=== PATIENT | female | born 1975 | race Caucasian/White ===

== ENCOUNTER → 2017-07-18 | Outpatient (CLI) | payer OTHER ==
[~2017-07-18] MED LIST: BNC4025 PO; NOVOLOG INSULIN PUMP; SYN200 PO
[2017-07-18 13:39] LABS: HEMOGLOBIN A1C 10.7 % (4.5-5.6)
[2017-07-18 13:50] LABS: ALBUMIN 3.4 gm/dl (3.4-5.0); ALT/SGPT 21 U/L (12-78); AST/SGOT 12 U/L (15-37); BLOOD UREA NITROGEN 15 mg/dl (7-18); CALCIUM 9.1 mg/dl (8.5-10.1); CARBON DIOXIDE 25 mmol/L (21-32); CREATININE 0.61 mg/dl (0.60-1.20); GLUCOSE 103 mg/dl (70-99); POTASSIUM 4.1 mmol/L (3.5-5.1); SODIUM 137 mmol/L (136-145)
[2017-07-18 13:58] LABS: ALKALINE PHOSPHATASE 77 U/L (45-117); CHOLESTEROL 183 mg/dl (0-200); LDL CHOLESTEROL CALCULATED 111 mg/dl; TOTAL PROTEIN 7.3 gm/dl (6.4-8.2)
[2017-07-18 14:00] LABS: CREATININE RANDOM URINE 76.4 mg/dl
== END | disposition home or self-care (01) ==
LOC: C.LABBFT 08:13
PROVIDERS: ATTEND Nurse Practitioner Acute Care
DX: E10.65 Type 1 diabetes mellitus with hyperglycemia (principal); I10 Essential (primary) hypertension; E06.3 Autoimmune thyroiditis

== ENCOUNTER → 2017-12-23 | Outpatient (CLI) | payer OTHER ==
[~2017-12-23] MED LIST changes: +B-CO-25 PO; -BNC4025 PO; +HYDR-5688 PO; +HYZ/50125 PO; +IBUP-103 PO; +IRON PO; +LEVO175T3 PO; +PRAV20TA PO; -SYN200 PO
[2017-12-23 10:57] LABS: BLOOD UREA NITROGEN 11 mg/dl (7-18); CALCIUM 9.1 mg/dl (8.5-10.1); CARBON DIOXIDE 26 mmol/L (21-32); GLUCOSE 211 mg/dl (70-99); POTASSIUM 3.7 mmol/L (3.5-5.1); SODIUM 137 mmol/L (136-145)
[2017-12-23 11:07] LABS: HEMATOCRIT 33.2 % (37-47); HEMOGLOBIN 9.7 g/dL (12.0-16.0); MEAN CELL VOLUME 70.5 fL (80-100); MEAN CORPUSCULAR HEMOGLOBIN 20.6 pg (25-34); MEAN CORPUSCULAR HGB CONC 29.2 g/dl (32-36); MEAN PLATELET VOLUME 9.3 fL (7.4-10.4); PLATELET COUNT 288 K/uL (130-400); RED CELL DISTRIBUTION WIDTH CV 17.5 % (11.5-14.5); RED CELL DISTRIBUTION WIDTH SD 44.7 fL (36.4-46.3); WHITE BLOOD COUNT 5.97 K/uL (4.8-10.8)
[2017-12-23 11:12] LABS: BASO % 0.5 %; BASO ABS # 0.03 K/uL (0-0.2); EOS ABS # 0.18 K/uL (0-0.5); IG# 0.01 K/uL (0.00-0.02); LYMPH % 26.1 %; LYMPH ABS # 1.56 K/uL (1.2-3.4); MONO % 6.4 %; MONO ABS # 0.38 K/uL (0.11-0.59); NEUT % 63.8 %; NEUT ABS # 3.81 K/uL (1.4-6.5)
[2017-12-24 08:44] LABS: HEMOGLOBIN A1C 10.2 % (4.5-5.6)
== END | disposition home or self-care (01) ==
LOC: C.LAB 09:37
PROVIDERS: ATTEND Surgery
DX: Z01.818 Encounter for other preprocedural examination (principal)

== ENCOUNTER → 2017-12-28 | Outpatient (CLI) | payer OTHER ==
--- NOTE | 2017-12-28 17:12 | ECHOCARDIOGRAM REPORT ---
*NOTICE TO RECEIVING CONSTITUTION PARTY AGENCY This information is strictly Confidential and protected under [place] law. [place] law prohibits you from making any further disclosure of this information unless further disclosure is expressly permitted by the written consent of the person to whom it pertains or is authorized by law. A general authorization for the release of medical or other information is not sufficient for this purpose. Hospital accepts no responsibility if the information is made available to any other person, INCLUDING THE PATIENT. Interpretation Summary * Name: JASON HAWKINS Study Date: 12/28/2017 02:48 PM BP: 166/92 mmHg * Patient Location: [facility] HR: 72 * : 1975 (M/d/yyyy) Gender: Female Height: 67 in * Age: 42 yrs Ethnicity: [place] Weight: 215 lb * Referring Physician: Lidia Gamboa * Performed By: Leta Silva RDCS * * Reason For Study: Pre Operative, Systolic Murmur * BSA: 2.1 m2 * -- Conclusions -- * 1. Normal LV size, borderline concentric LVH. * 2. LVEF 60-65%. No regional wall motion abnormalities. * 3. Normal RV size and function. * 4. Aortic valve sclerosis with nodular thickening of left coronary cusp. No significant aortic stenosis. * 5. Mild mitral regurgitation. * 6. No prior studies for comparison. Procedure Details * A complete two-dimensional transthoracic echocardiogram was performed (2D, M-mode, Doppler and color flow Doppler). Left Ventricle * The left ventricle is grossly normal size. * There is borderline concentric left ventricular hypertrophy. * Ejection Fraction = 60-65%. * No regional wall motion abnormalities noted. Right Ventricle * The right ventricle is grossly normal size. * The right ventricular systolic function is normal as assessed by tricuspid annular plane systolic excursion (TAPSE) (normal >1.5 cm). Atria * Borderline left atrial enlargement. * Right atrial size is normal. * No ASD detected; PFO is not assessed. Mitral Valve * The mitral valve is grossly normal. * There is no mitral valve stenosis. * There is mild mitral regurgitation. Tricuspid Valve * The tricuspid valve is not well visualized, but is grossly normal. * Significant tricuspid regurgitation is absent. Aortic Valve * The aortic valve is trileaflet. * There is discrete nodular thickening of the left coronary cusp. * Aortic valve sclerosis moderate, without significant aortic valvular stenosis. * No hemodynamically significant valvular aortic stenosis. * There is no significant aortic regurgitation. Pulmonic Valve * The pulmonary valve is inadequately visualized, but the Doppler data is adequate for interpretation. * Pulmonic stenosis is absent. * There is no significant pulmonary regurgitation. Great Vessels * The aortic root and proximal ascending aorta are normal sized. Pericardium/Pleural * There is no pericardial effusion. Great Vessels * Normal inferior vena cava size and collapsability with sniff indicates a normal right atrial pressure of 3 mmHg MMode 2D Measurements and Calculations IVSd 1.3 cm IVSs 1.3 cm LVIDd 3.9 cm LVIDs 2.7 cm LVPWd 1.1 cm LVPWs 1.5 cm IVS/LVPW 1.2 FS 30.3 % EDV(Teich) 66.0 ml ESV(Teich) 27.5 ml EF(Teich) 58.4 % EDV(cubed) 59.4 ml ESV(cubed) 20.1 ml EF(cubed) 66.2 % % IVS thick 1.5 % % LVPW thick 40.2 % LV mass(C)d 150.2 grams LV mass(C)dI 72.0 grams/m\S\2 LV mass(C)s 119.8 grams LV mass(C)sI 57.4 grams/m\S\2 SV(Teich) 38.5 ml SI(Teich) 18.5 ml/m\S\2 SV(cubed) 39.3 ml SI(cubed) 18.9 ml/m\S\2 Ao root diam 3.1 cm Ao root area 7.4 cm\S\2 ACS 1.7 cm LA dimension 3.9 cm LA/Ao 1.3 LVAd ap4 30.8 cm\S\2 LVLd ap4 9.1 cm EDV(MOD-sp4) 87.6 ml EDV(sp4-el) 88.2 ml LVAs ap4 18.0 cm\S\2 LVLs ap4 7.4 cm ESV(MOD-sp4) 39.4 ml ESV(sp4-el) 37.2 ml EF(MOD-sp4) 55.1 % EF(sp4-el) 57.9 % LVAd ap2 27.8 cm\S\2 LVLd ap2 8.5 cm EDV(MOD-sp2) 79.2 ml EDV(sp2-el) 77.1 ml LVAs ap2 16.7 cm\S\2 LVLs ap2 7.7 cm ESV(MOD-sp2) 32.0 ml ESV(sp2-el) 30.8 ml EF(MOD-sp2) 59.6 % EF(sp2-el) 60.1 % LVLd %diff -6.99 % EDV(MOD-bp) 86.6 ml LVLs %diff 2.9 % ESV(MOD-bp) 36.1 ml EF(MOD-bp) 58.3 % SV(MOD-sp4) 48.2 ml SI(MOD-sp4) 23.1 ml/m\S\2 SV(MOD-sp2) 47.2 ml SI(MOD-sp2) 22.6 ml/m\S\2 SV(MOD-bp) 50.6 ml SI(MOD-bp) 24.2 ml/m\S\2 SV(sp4-el) 51.1 ml SI(sp4-el) 24.5 ml/m\S\2 SV(sp2-el) 46.3 ml SI(sp2-el) 22.2 ml/m\S\2 Doppler Measurements and Calculations MV E max derrick 95.9 cm/sec MV A max derrick 75.9 cm/sec MV E/A 1.3 MV dec time 0.26 sec Ao V2 max 178.3 cm/sec Ao max PG 12.7 mmHg Ao max PG (full) 8.0 mmHg LV V1 max PG 4.7 mmHg LV V1 max 108.7 cm/sec PA V2 max 96.4 cm/sec PA max PG 3.7 mmHg
== END | disposition home or self-care (01) ==
LOC: C.CPL 14:22
PROVIDERS: ATTEND Physician Assistant Medical
DX: R01.1 Cardiac murmur, unspecified (principal)

== ENCOUNTER 2017-12-29 11:03 | Observation (INO) | payer OTHER ==
[2017-12-16 15:57] VITALS: BMI 34.0
[2017-12-23 09:48] VITALS: BMI 33.0
--- NOTE | 2017-12-23 10:05 | PAT Medication Instructions ---
Service Date Dec 23, 2017. Current Home Medication List B-Complex W/ Folic Acid (Super B Complex Maxi), 1 TAB PO QAM Hctz/Losartan (Hyzaar 12.5MG/50MG), 1 TAB PO QAM Ibuprofen Tab (Advil), 400 MG PO PRN Levothyroxine Sodium (Levothyroxine Sodium), 1 TAB PO QAM Pravastatin (Pravachol ), 40 MG PO HS [Iron], 1 TAB PO QAM [Novolog Insulin Pump] Medication Instructions For Your Scheduled Surgery - Check with surgeon for instructions: Ibuprofen Tab (Advil), 400 MG PO PRN - Hold the following medications the morning of surgery: [Iron], 1 TAB PO QAM Hctz/Losartan (Hyzaar 12.5MG/50MG), 1 TAB PO QAM B-Complex W/ Folic Acid (Super B Complex Maxi), 1 TAB PO QAM - Take the following medications the morning of surgery with a sip of water: Levothyroxine Sodium (Levothyroxine Sodium), 1 TAB PO QAM - Take the following medications as scheduled the night before surgery: Pravastatin (Pravachol ), 40 MG PO HS - For Insulin Dependent Diabetic patients: Test blood sugar A.M. of surgery. - [Novolog Insulin Pump]- do not bolus morning of surgery. continue basal setting. If you have any questions please call us at [phone] or [phone] or [phone]
[2017-12-29] VITALS (7 sets, daily range): BP systolic 111–187; BP diastolic 70–96; PULSE 77–92; TEMP 36.8–37.2; O2SAT 93–98; BMI 33.0
[~2017-12-29] VITALS: Ht 170.2 cm; Wt 96.9 kg
[~2017-12-29 11:03] MED LIST changes: +ATROPINE SULFATE 0.1 MG/ML 5ML SYR IV PRN; +CLINDAMYCIN IV 900 MG in DEXTROSE 5% 50ML IV SCH; +EpHEDrine SULFATE INJ 50 MG/ML AMP IV PRN; +FENTANYL CITRATE INJ 50 MCG/1 ML 2 ML VIAL IV PRN; -HYDR-5688 PO; +HYDROmorphone INJ 1 MG/ML SYR IV PRN; +LACTATED RINGER'S 1000ML 1,000 ML IV SCH; +ONDANSETRON INJ 2 MG/ML 2 ML VIAL IV PRN
[2017-12-29] MEDS ORDERED: FENTANYL CITRATE INJ 50 MCG/1 ML 2 ML VIAL ONE ×2 (12:05→15:30)
[2017-12-29] MEDS ORDERED: MIDAZOLAM HCL 1 MG/ML 2ML VIAL ONE (12:05)
--- NOTE | 2017-12-29 12:40 | History & Physical Bridge Note ---
H&P Re-Evaluation Bridge Note: I have examined the patient, reviewed the History & Physical and in the interval since the performance of the History & Physical I have noted the following changes of clinical significance: No changes noted
[2017-12-29] MEDS ORDERED: BUPIVACAINE/EPINEPHRINE 0.5% MPF 1:200,000 30 ML VIAL ONE (12:57)
[2017-12-29] MEDS ORDERED: HYDR-5688 PO (13:03)
--- NOTE | 2017-12-29 13:06 | Discharge Instructions ---
Discharge Instructions Date of Service Dec 29, 2017. Admission Reason for Admission: Incisional Hernia, Diabetes Discharge Discharge Diagnosis / Problem: incisional hernia Discharge Goals Goal(s): Decrease discomfort, Therapeutic intervention Activity Recommendations Activity Limitations: as noted below Lifting Limitations: no more than 10 pounds Exercise/Sports Limitations: until after follow-up appointment May Resume Sexual Activity: after follow-up appointment . Instructions / Follow-Up Instructions / Follow-Up call [phone] if any questions or concerns. Current Hospital Diet Patient's current hospital diet: Discharge Diet Recommended Diet: Regular Diet Pending Studies Studies pending at discharge: no Laboratory Results Hemoglobin A1c Test 12/23/17 10:10 Range/Units Estimated Average Glucose 246 mg/dl Hemoglobin A1c 10.2 H 4.5-5.6 % Medical Emergencies . Who to Call and When: Medical Emergencies: If at any time you feel your situation is an emergency, please call 911 immediately. . Non-Emergent Contact Non-Emergency issues call your: Primary Care Provider, Surgeon Call Non-Emergent contact if: temperature is above 101, wound has increased drainage, wound has increased redness, wound has increased pain . "Provider Documentation" section prepared by Fam Sharp. .
[2017-12-29] MEDS ORDERED: LARYING-O-JET KIT (LTA) ONE (13:37)
[2017-12-29] MEDS ORDERED: ONDANSETRON INJ 2 MG/ML 2 ML VIAL ONE (13:37)
[2017-12-29] MEDS ORDERED: LIDOCAINE HCL 2% 2 ML VIAL (20MG/ML) ONE (13:37)
[2017-12-29] MEDS ORDERED: PROPOFOL IV EMULSION 10 MG/ML 20 ML VIAL ONE (13:37)
[2017-12-29] MEDS ORDERED: GLYCOPYRROLATE INJ 0.2 MG/ML VIAL ONE (13:37)
[2017-12-29] MEDS ORDERED: NEOSTIGMINE METHYLSULFATE 5 MG/5 ML SYR ONE (13:37)
[2017-12-29] MEDS ORDERED: ROCURONIUM BROMIDE 10 MG/ML 5 ML VIAL ONE (13:37)
[2017-12-29] MEDS ORDERED: PHENYLEPHRINE 100MCG/ML 5ML SYR ONE (13:42)
[2017-12-29] MEDS ORDERED: HYDROmorphone INJ 2 MG/ML SYR/VIAL ONE (13:57)
[2017-12-29] MEDS ORDERED: ARISTA ABSORBABLE HEMOSTAT 3GM TOP ONE (14:50)
[2017-12-29] MEDS ORDERED: PHARMACY GLYCEMIC MGMT CONSULT STA (15:11)
--- NOTE | 2017-12-29 15:14 | [facility] Operative Report ---
Operative Report Operative Date Dec 29, 2017. Pre-Operative Diagnosis Incisional Hernia; painful/widened scar Post-Operative Diagnosis Multiple Incisional Hernias; adhesions; painful scar Procedure(s) Performed Component Separation, Open Repair of Multiple Incisional Hernias with Biologic Mesh, Enterolysis and Scar Revision Surgeon Dr. Sharp Market Development Analyst Surgeon(s) Bryan Asencio PA-C Estimated Blood Loss 15 ml Specimens none per surgeon Anesthesia Type General Complication(s) none Description of Procedure After informed consent was obtained the patient was taken to the operating room and placed in supine position. After successful intubation the abdomen was sterilely prepped and draped in usual fashion. She had a widened painful scar. We used a 15 blade scalpel to make a wide ellipse around her entire previous upper midline incision. We used electrocautery to remove the skin and subcutaneous scar. Once we had the skin off there was a large obvious mid abdominal hernia. We took down the hernia sac using blunt dissection with small amounts of electrocautery and sharp scissor lysis. Once we open the hernia sac and could palpate the undersurface of the fascia within the abdomen and I noted 5 hernias total. One hernia inferior to the large hernia and 3 smaller hernias superior. They basically formed a Georgian cheese type of effect through the entire previous incision. I therefore decided to connect all of these by transecting the fascial bridges which were thinned out anyway. After doing this I had 1 large defect. There were adhesions to the undersurface of the fascia primarily involving colon. This was taken down using sharp scissor lysis. Once I had these down I then skeletonized the fascia laterally on both sides until I was lateral to the rectus muscle. I divided the fascia right at the border of the rectus and obliques with electrocautery. I performed a component separation/relaxing incision vertically on both sides the entire length of the incision. This allowed me to primarily close the large defect with minimal tension. Once the relaxing incisions were made I then used #1 Ethibond in erupted [id number] fashion to summer primarily close the entire defect. Once this was completed we thoroughly irrigated the wound. Any small bleeding points were controlled using electrocautery. I then used a 20 cm x 20 cm piece of biologic ovitex mesh. I did cut it slightly to narrow it to about 13 or 14 cm from side to side. We then placed it as an onlay centering it around the midline closure. I secured it to underlying fascia using 0 Ethibond in interrupted fashion around the entire periphery as well as through the middle of it. It laid nice and flat and tension-free. An additional irrigation was performed. A 10 flat Marshall-Lamb drain was placed through a separate stab incision in the soft tissue space. This was secured to the skin using 2-0 nylon. We used Shakeel powder on the raw surfaces to help prevent seroma and hematoma formation. I then closed the wound in multiple layers 0 Vicryl for deep layers 2-0 Vicryl for mid layers and 4-0 Monocryl for skin. Benzoin, Steri-Strips, gauze and tape as well as an abdominal binder were used for dressing. The patient was awaken extubated and transferred recovery in stable condition. My physician graduate research assistant was present for the entire case. He helped prep the patient. He helped with retraction and exposure during my entire dissection. He helped with wound closure and dressing placement at the end of the case. I attest to the content of the Intraoperative Record and any orders documented therein. Any exceptions are noted below.
[2017-12-29] MEDS ORDERED: ONDANSETRON INJ 2 MG/ML 2 ML VIAL IV PRN (15:15)
[2017-12-29] MEDS ORDERED: MoRPHine SULFATE 2 MG/ML CARP IV PRN (15:15)
[2017-12-29] MEDS ORDERED: OXYCODONE HCL IR 5 MG TAB (IMMEDIATE RELEASE) PO PRN (15:30)
[2017-12-29] MEDS ORDERED: PHARMACY GLYCEMIC MGMT CONSULT PRN (15:30)
[2017-12-29] MEDS ORDERED: HYDROmorphone INJ 1 MG/ML SYR ONE (15:30)
[2017-12-29] MEDS ORDERED: IV FLUIDS COMPLETED PRN (15:45)
--- NOTE | 2017-12-29 16:42 | Anesthesiology Progress Note ---
Anesthesia Post Op Note Date & Time Dec 29, 2017 at 16:42 Vital Signs Pain Intensity: 3 Vital Signs Past 12 Hours Date Time Temp Pulse Resp B/P (MAP) Pulse Ox O2 Delivery O2 Flow Rate FiO2 12/29/17 16:40 89 12 145/67 98 Nasal Cannula 2 12/29/17 16:30 85 18 142/74 98 Nasal Cannula 2 12/29/17 16:20 85 14 140/68 98 Nasal Cannula 2 12/29/17 16:10 36.7 92 14 136/68 98 Nasal Cannula 2 12/29/17 16:00 85 12 165/75 98 Nasal Cannula 2 12/29/17 15:50 85 12 169/79 98 Nasal Cannula 2 12/29/17 15:40 83 12 168/83 100 Nasal Cannula 2 12/29/17 15:30 85 12 178/90 100 Oxymask 10 12/29/17 15:21 36.7 88 14 177/92 100 Oxymask 10 12/29/17 11:57 37.2 92 18 187/96 (126) 97 Room Air Notes Mental Status: alert / awake / arousable, participated in evaluation Pt Amnestic to Procedure: Yes Nausea / Vomiting: adequately controlled Pain: adequately controlled Airway Patency, RR, SpO2: stable & adequate BP & HR: stable & adequate Hydration State: stable & adequate Anesthetic Complications: no major complications apparent
[2017-12-29] MEDS ORDERED: GLUCOSE 40% GEL 15 GM TUBE PO PRN (17:45)
[2017-12-29] MEDS ORDERED: CARBOHYDRATES FOR HYPOGLYCEMIA PO PRN (17:45)
[2017-12-29] MEDS ORDERED: GLUCOSE 10 TABS/TUBE PO PRN (17:45)
[2017-12-29] MEDS ORDERED: INSULIN ASPART 100 UNITS/ML VIAL SC PRN (17:45)
[2017-12-29] MEDS ORDERED: GLUCAGON FOR INJ 1 MG VIAL IM PRN (17:45)
[2017-12-29] MEDS ORDERED: DEXTROSE 50% 50 ML SYR IV PRN (17:45)
[2017-12-29] MEDS: ACETAMINOPHEN IV 1,000 MG in EMPTY BAG 0 ML IV SCH (18:13)
[2017-12-29] MEDS: KETOROLAC TROMETHAMINE 15 MG/ML VIAL IV. SCH (18:14)
[2017-12-29] MEDS: METOCLOPRAMIDE HCL INJ 5 MG/ML 2 ML VIAL IV. SCH (18:14)
[2017-12-29] MEDS: NovoLOG INSULIN PUMP SCH ×2 (18:24→21:07)
[2017-12-29] MEDS: CLINDAMYCIN IV 900 MG in DEXTROSE 5% 100ML 100 ML IV SCH (19:47)
[2017-12-29] MEDS ORDERED: PRAVASTATIN SOD 40 MG TAB PO SCH (21:00)
[2017-12-29] MEDS: DOCUSATE SODIUM 100 MG CAP PO SCH (21:01)
--- NOTE | 2017-12-29 22:19 | Pharmacy Progress Note ---
Glycemic Control Intl Consult Date of Service Dec 29, 2017. Scope Glycemic Pharmacist consulted by Bryan Asencio PA-C on 12/29/2017 for glycemic control and to write orders per [facility] inpatient glycemic control protocol Objective Weight (Kilograms): 96.900 Accuchecks BSG (last 24hrs): Test 12/29/17 11:51 12/29/17 13:51 12/29/17 15:25 12/29/17 17:09 Bedside Glucose 215 mg/dl (70-90) 170 mg/dl (70-90) 150 mg/dl (70-90) 278 mg/dl (70-90) Test 12/29/17 21:06 Bedside Glucose 233 mg/dl (70-90) Recent Pertinent Medications Outpatient Anti-diabetic Regimen: * Novolog Pump * basal rates : * 0556-4676: 1.8 units/hr * 2801-9469: 2 units/hr * 5647-6531: 1.4 units/hr * 4798-5000: 1.5 units/hr * CR: 1 unit per 15 grams of carbohydrates * A1c = 10.2 % 12/23/17 Risk Factors for Insulin Resistance: * Recent Surgery: POD 0 for multiple hernia repair * Diet: clear liquid diet Assessment & Plan ASSESSMENT: * Pt is to manage BSGs with insulin pump per outpatient settings. * RN will have patient read and sign agreement [id number] Insulin Pump Therapy Patient Agreement. * RN will provide and explain form [id number] Flowsheet for Patient * Patient will document their insulin dose given on NS-824 which is kept at the bedside, available to caregivers upon request, and which becomes part of the permanent medical record. If at any time the patients condition evidences that he/she is not able to manage the insulin pump (i.e. frequent hypo/hyperglycemia) Pharmacy will assume glycemic control by discontinuing the pump & managing with SQ basal bolus insulin regimen for the interim. * Please note that the plan above was derived based on current level of insulin resistance and hospital stress. These recommendations are appropriate for inpatient admission only. Plan of care upon discharge will need to be reassessed to avoid potential outpatient hypo/hyperglycemia. Thank you.
[2017-12-29] MEDS: SODIUM CHLORIDE 0.9% 1000ML 1,000 ML IV SCH (23:24)
[2017-12-30] MEDS: CLINDAMYCIN IV 900 MG in DEXTROSE 5% 100ML 100 ML IV SCH (00:52)
[2017-12-30 00:53] VITALS: BP 150/75; PULSE 78; TEMP 36.9; O2SAT 94
[2017-12-30] MEDS: ACETAMINOPHEN IV 1,000 MG in EMPTY BAG 0 ML IV SCH ×2 (02:18→10:03)
[2017-12-30] MEDS: METOCLOPRAMIDE HCL INJ 5 MG/ML 2 ML VIAL IV. SCH ×2 (02:19→10:04)
[2017-12-30] MEDS: KETOROLAC TROMETHAMINE 15 MG/ML VIAL IV. SCH ×2 (02:19→10:04)
[2017-12-30 02:50] VITALS: BP 123/76; PULSE 83; TEMP 36.9; O2SAT 96
[2017-12-30 04:55] VITALS: BP 150/79; PULSE 89; TEMP 36.9; O2SAT 98
[2017-12-30] MEDS ORDERED: NURSING VERBAL MED ORDER ONE (05:45)
[2017-12-30] MEDS ORDERED: LEVOTHYROXINE 175 MCG TAB PO SCH (06:00)
--- NOTE | 2017-12-30 07:41 | Surgery Progress Note ---
Surgery Progress Note Date of Service Dec 30, 2017. Subjective Post OP Day: 1 + feeling well, + pain controlled (Ofirmev) Objective Vital Signs: Date Time Temp Pulse Resp B/P (MAP) Pulse Ox O2 Delivery O2 Flow Rate FiO2 12/30/17 04:55 36.9 89 17 150/79 (102) 98 Room Air 12/30/17 02:50 36.9 83 17 123/76 (92) 96 Room Air 12/30/17 00:53 36.9 78 18 150/75 (100) 94 Room Air 12/30/17 00:30 Room Air 12/29/17 22:50 36.8 78 18 131/78 (95) 98 Room Air 12/29/17 20:50 36.8 77 18 134/78 (96) 96 Room Air 12/29/17 19:54 36.9 80 18 111/72 (85) 93 Room Air 12/29/17 18:50 36.9 89 18 117/70 (86) 98 Nasal Cannula 2.0 12/29/17 17:50 36.8 90 18 147/76 (99) 98 Nasal Cannula 2.0 12/29/17 16:50 Nasal Cannula 2.0 12/29/17 16:50 Nasal Cannula 2.0 12/29/17 16:50 37.2 88 18 164/73 (103) 97 Nasal Cannula 2.0 12/29/17 16:40 89 12 145/67 98 Nasal Cannula 2 12/29/17 16:30 85 18 142/74 98 Nasal Cannula 2 12/29/17 16:20 85 14 140/68 98 Nasal Cannula 2 12/29/17 16:10 36.7 92 14 136/68 98 Nasal Cannula 2 12/29/17 16:00 85 12 165/75 98 Nasal Cannula 2 12/29/17 15:50 85 12 169/79 98 Nasal Cannula 2 12/29/17 15:40 83 12 168/83 100 Nasal Cannula 2 12/29/17 15:30 85 12 178/90 100 Oxymask 10 12/29/17 15:21 36.7 88 14 177/92 100 Oxymask 10 12/29/17 11:57 37.2 92 18 187/96 (126) 97 Room Air Physical Exam: MARY JO drainage (45 cc overnight) Abdomen: soft Incision(s): dry (dressing) Laboratory Results: Results Past 24 Hours Test 8/2/18 11:51 12/29/17 13:51 12/29/17 15:25 12/29/17 17:09 Range/Units Bedside Glucose 215 170 150 278 70-90 mg/dl Test 12/29/17 21:06 Range/Units Bedside Glucose 233 70-90 mg/dl Assessment & Plan s/p incisional hernia repair/component separation good pain control home if tolerates diet
[2017-12-30] MEDS: NovoLOG INSULIN PUMP SCH ×2 (08:00→12:25)
--- NOTE | 2017-12-30 08:19 | Discharge Summary ---
Discharge Summary Date of Service Dec 30, 2017. Discharge Summary Admission Date: Dec 29, 2017 at 15:19 Discharge Date: Dec 30, 2017 Discharge Disposition: Home Principal Diagnosis: Multiple Ventral/Incisional Hernias Immunizations: Have You Had Influenza Vaccine: No History of Tetanus Vaccine?: No History of Pneumococcal: No History of Hepatitis B Vaccine: No Procedures: Open Repair of Multiple Ventral/Incisional Hernias with Biologic Mesh Consultations: Pharmacy for glycemic control Medication Reconciliation New Medications: Hydrocodone/Acetaminophen 5MG/325MG (Fromberg 5MG/325MG) Tab 1-2 TABLET PO Q4H PRN for Pain, #30 TAB Continued Medications: B-Complex W/ Folic Acid (Super B Complex Maxi) 1 Tab Tab 1 TAB PO QAM Hctz/Losartan (Hyzaar 12.5MG/50MG) Tab 1 TAB PO QAM, TAB Ibuprofen Tab (Advil) 200 Mg Tab 400 MG PO PRN, TAB Levothyroxine Sodium (Levothyroxine Sodium) 175 Mcg Tab 1 TAB PO QAM for 90 Days, #90 TAB 3 Refills Pravastatin (Pravachol ) 20 Mg Tab 40 MG PO HS, TAB [Iron] () 1 TAB PO QAM [Novolog Insulin Pump] () Discharge Exam Review of Systems: Constitutional: No fever, No chills Cardiovascular: No chest pain Abdomen: + pain (incisional ), No nausea, No vomiting Physical Exam: General Appearance: WD/WN, no apparent distress Respiratory/Chest: lungs clear, normal breath sounds, no respiratory distress, no accessory muscle use Cardiovascular: regular rate, rhythm Abdomen / GI: soft Neurologic/Psychiatric: alert, oriented x 3 Hospital Course 42 year old female with multiple ventral/incisional hernias -open repair of hernias with biologic mesh performed on 12/29/17 -MARY JO drain placed at time of surgery: -pt. discharged with drain in place -she will drain as needed and record amounts -drain will be assessed in office at follow-up appointment and removed if clinically indicated -pain control measures implemented -ambulation, deep breathing, and use of IS encouraged -diet advanced in appropriate fashion -pharmacy consulted for glycemic control: -insulin pump resumed post-op -home medications resumed at time of discharge with no changes made OTHER -SCDs used for DVT prevention initially; no chemical means used as she was discharged on POD #1 -pt. to f/u with Dr. Sharp in approximately 1 week; office staff to call pt. for time and date of appointment Total Time Spent: Greater than 30 minutes This includes examination of the patient, discharge planning, medication reconciliation, and communication with other providers. Discharge Instructions Please refer to the electronic Patient Visit Report (Discharge Instructions) for additional information. Follow-Up Dr. Sharp of [facility] [place] General Surgery in 1 week. Additional Copies To Bowen Milner M.D.
[2017-12-30 08:49] VITALS: BP 163/82; PULSE 91; TEMP 36.5; O2SAT 99
[2017-12-30] MEDS ORDERED: FOLIC ACID PO SCH (09:00)
[2017-12-30] MEDS ORDERED: B COMPLEX PO SCH (09:00)
[2017-12-30] MEDS ORDERED: LOSARTAN POTASSIUM 50 MG TAB PO SCH (09:00)
[2017-12-30] MEDS: DOCUSATE SODIUM 100 MG CAP PO SCH (10:04)
[2017-12-30 11:40] VITALS: Ht 170.2 cm; Wt 96.9 kg
[2017-12-30 12:07] VITALS: BP 163/82; PULSE 91; TEMP 36.5; O2SAT 99
[2017-12-30] MEDS: SODIUM CHLORIDE 0.9% 1000ML 1,000 ML IV SCH (12:44)
--- NOTE | 2017-12-30 12:57 | Anesthesiology Progress Note ---
Anesthesia Post Op Note Date & Time Dec 30, 2017 at 12:57 Vital Signs Pain Intensity: 3.0 Vital Signs Past 12 Hours Date Time Temp Pulse Resp B/P (MAP) Pulse Ox O2 Delivery O2 Flow Rate FiO2 12/30/17 12:07 36.5 91 18 99 Room Air 12/30/17 08:49 36.5 91 18 163/82 (109) 99 Room Air 12/30/17 08:15 Room Air 12/30/17 04:55 36.9 89 17 150/79 (102) 98 Room Air 12/30/17 02:50 36.9 83 17 123/76 (92) 96 Room Air Notes Mental Status: alert / awake / arousable, participated in evaluation Pt Amnestic to Procedure: Yes Nausea / Vomiting: adequately controlled Pain: adequately controlled Airway Patency, RR, SpO2: stable & adequate BP & HR: stable & adequate Hydration State: stable & adequate Anesthetic Complications: no major complications apparent
== END 2017-12-30 12:57 | disposition home or self-care (01) ==
LOC: C.ACU 11:03 → C.MSW 15:19 → ENRESERV 15:59
PROVIDERS: ADMIT Surgery; ATTEND Surgery
DX: K43.2 Incisional hernia without obstruction or gangrene (principal); K43.9 Ventral hernia without obstruction or gangrene; I10 Essential (primary) hypertension; E10.9 Type 1 diabetes mellitus without complications; E78.5 Hyperlipidemia, unspecified; E03.9 Hypothyroidism, unspecified; E66.01 Morbid (severe) obesity due to excess calories; Z98.84 Bariatric surgery status; Z88.0 Allergy status to penicillin